=== PATIENT | female | born 1990 | race Caucasian/White ===

== ENCOUNTER 2020-02-18 11:06 | Emergency (ER) | payer OTHER ==
[~2020-02-18] VITALS: Ht 165.1 cm; Wt 62.1 kg
[2020-02-18 11:51] VITALS: BP 132/80; Ht 165.1 cm; Wt 62.1 kg
== END 2020-02-18 12:50 | disposition home or self-care (01) ==
LOC: ED 11:06
DX: M54.6 Pain in thoracic spine (principal); M54.2 Cervicalgia; V49.9XXA Car occupant (driver) (passenger) injured in unspecified traffic accident, initial encounter; Y93.I9 Activity, other involving external motion; Y92.488 Other paved roadways as the place of occurrence of the external cause; Y99.8 Other external cause status